=== PATIENT | male | born 1940 | race Caucasian/White ===

== ENCOUNTER 2025-01-16 12:43 | Emergency (ER) | payer OTHER, SELFPAY ==
[2025-01-16 12:45] VITALS: BP 141/65
--- NOTE | 2025-01-16 13:50 | ED.GENMED ---
History of Present Illness
General
Chief Complaint: Skin Surface Trauma
Source: patient
Exam Limitations: none
Time Seen by Provider: 01/16/25 13:39
Nursing documentation reviewed up to this point in time: agreed with
History of Present Illness
History of Present Illness:
Patient presents to ED for evaluation secondary to right index finger injury, which occurred yesterday afternoon, when it was accidentally cut with a saw at home. Denies any other injury. Tetanus vaccination up-to-date.
Past History
Past History
ED Past Medical History: Arrthythmia (atrial fibrillation), HTN, Hypercholesterolemia, [place], Other (Gout) and Other (parotid gland lesion found to be dental abscess requiring root canal December 2020)
ED Past Surgical History: Cardiac (pacemaker, cardiac stents), Orthopedic (right knee replacement) and Other (bilateral carotid endarterectomies, umbilical herniorrhaphy)
Patient has exhibited threatening behavior?: No
PSI?: No
Social History
Tobacco: Former smoker
Alcohol: None
Drug: None
Personal: Other (Seperated and has girlfriend)
Living: with family
Employment: Retired
Family History
Family History: Other (reviewed and noncontributory)
Review of Systems
Review of Systems
Allergies reviewed?: Yes
All Other Systems: ROS reviewed and negative except as documented in HPI and ROS
Constitutional: Reports no symptoms
Musculoskeletal: Reports no symptoms
Skin: Reports other (Finger laceration)
Neurological: Reports no symptoms
Phy Exam
Physical Exam
Physical Exam:
Physical Exam
General: mild distress, not acutely ill. afebrile
Head: nc/at. eomi
Neck: supple. normal range of motion
Neuro: alert and oriented x 3. no focal neurological deficits
Skin: right 2nd phalanx: laceration through distal 1/8 nail noted, involving soft tissue, along volar surface, without active bleeding.
Psychiatric: well kept. interactive and cooperative
Extremities: no edema.
Course
Orders/Labs/Results
Orders:
Orders
01/16/25 13:39
CR Finger(s)/thumb Min 2 Vw Rt Urgent
Comment:
Reason For Exam: trauma
Indicate Which Finger:: Index Finger
01/16/25 13:58
Acetaminophen [Tylenol] 650 mg PO NOW STA
Vital Signs
Initial and Last Documented VS:
Initial Vital Signs
Temp Pulse Resp BP Pulse Ox
98.4 F 62 18 141/65 97
01/16/25 12:45 01/16/25 12:45 01/16/25 12:45 01/16/25 12:45 01/16/25 12:45
Last Documented Vital Signs
Temp Pulse Resp BP Pulse Ox
98.4 F 64 16 141/65 97
01/16/25 12:45 01/16/25 15:30 01/16/25 15:30 01/16/25 12:45 01/16/25 15:30
MDM/Problems Addressed
MDM/Problems Addressed:
X-ray report reviewed and discussed with the patient.
After local digital block, affected finger soaked in diluted betadine solution for 20 min. Afterwards, finger rinsed thoroughly and bulky dressing with surgicel applied. Pt will be referred to hand surgeon for re-evaluation, as outpatient.
Pt has had therapeutic INR recently and already scheduled for repeat INR in upcoming days. No active bleeding, thus will defer blood work at this time
*Pulse Oximetry
SaO2: 97
Oxygen Mode of Delivery: Room air
Patient hypoxic: no
*Critical Care Note
Total Time (30-74mins, 75-104mins- exclusive of procedures): Not Applicable
ED Attending Note
-
Portions of this chart may have been created with voice recognition software.� Occasional wrong word or��sound alike� substitutions may have occurred due to the inherent limitations of voice recognition software.
Discharge Plan
Departure
Patient Disposition: Home (Routine Discharge)
Date of Disposition: 01/16/25
Time of Disposition: 15:13
Patient with high blood pressure during this ER visit?: Yes
Condition: Fair
Discharge Problem:
Avulsion of finger
Instructions: Common Finger Injuries ED
Prescriptions:
No Action
sotalol 80 MG tablet
80 mg PO HS
amlodipine 5 MG tablet
5 mg PO DAILY
allopurinol 100 MG tablet
100 mg PO DAILY
ramipril 5 MG capsule
5 mg PO DAILY
Folbic 1 EACH tablet
1 tab PO DAILY
cyclobenzaprine 10 mg tablet
10 mg PO HS Qty: 7 0RF
warfarin [Jantoven] 2.5 MG tablet
0 mg PO DAILY
Patient Comments:
patient says he takes this in morning and one everyday he a little confused waiting donor services specialist back from
Rx Instructions:
hold on 01/07.
Check INR on 01/08
coenzyme Q10 [CoQ-10] 100 mg Capsule
100 mg PO DAILY
Referrals:
Edwin Pan MD [Active, Orthopedics]
UNKNOWN - PT DOES,NOT KNOW [Family Provider]
Activity Restrictions/Additional Instructions:
As discussed, please follow-up with your primary care physician and/or referred hand surgeon for reevaluation.
Interventions
Interventions:
*Risk Screen - Suicide Last Done: 01/16/25 12:45
*General Assessment Last Done: 01/16/25 15:30
*Neglect/Abuse Screening Last Done: 01/16/25 15:30
*ED- Fall Risk Assessment Last Done: 01/16/25 15:30
*ED COVID-19 Vaccine History Last Done: 01/16/25 15:30
*Nursing Disposition Last Done: 01/16/25 15:30
ED-Skin Assessment Last Done: 01/16/25 13:30
Discharge Date and Time
Discharge Date/Time: 01/16/25 15:30
Print Language: CITIZEN OF [place]
== END 2025-01-16 15:30 | disposition home or self-care (01) ==
LOC: EMR 12:43
PROVIDERS: EMERGENCY PHYSICIAN Emergency Medicine
DX: S61.310A Laceration without foreign body of right index finger with damage to nail, initial encounter (principal); W27.0XXA Contact with workbench tool, initial encounter; I48.91 Unspecified atrial fibrillation; I10 Essential (primary) hypertension; E78.00 Pure hypercholesterolemia, unspecified; M10.9 Gout, unspecified; Z95.0 Presence of cardiac pacemaker; Z95.5 Presence of coronary angioplasty implant and graft; Z87.891 Personal history of nicotine dependence; Z96.651 Presence of right artificial knee joint
CPT/HCPCS: 99283; 73140

== ENCOUNTER → 2025-01-24 21:15 | Emergency (ER) | payer OTHER, SELFPAY ==
[2025-01-24 21:25] VITALS: BP 108/74
[2025-01-24 21:42] LABS: Hematocrit 40.2 % (39.0-52.0); Hemoglobin 13.5 g/dL (13.0-18.0); Mean Corp Hgb Conc. 33.6 g/dL (33.0-37.0); Mean Corpuscular Volume 86.5 fL (80.0-94.0); Nucleated Red Blood Cells % 0 % (-); Platelet Count 229 10^3/uL (130-400); Red Cell Dist. Width 15.7 % (11.5-14.5)
[2025-01-24 22:01] LABS: ALT (SGPT) 37 U/L (0-50); AST (SGOT) 32 U/L (17-59); Albumin 4.1 g/dl (3.5-5.0); Alkaline Phosphatase 87 U/L (38-126); Blood Urea Nitrogen 22 mg/dl (9-20); Calcium 8.4 mg/dl (8.4-10.2); Carbon Dioxide 28 mmol/L (22-30); Chloride 103 mmol/L (98-107); Glucose 127 mg/dl (70-99); Potassium 3.9 mmol/L (3.5-5.1); Sodium 137 mmol/L (135-145); Total Protein 6.6 g/dl (6.3-8.2); eGFR 58.89
== END ==
LOC: EMR 21:15
PROVIDERS: Emergency Medicine
DX: S61.219A Laceration without foreign body of unspecified finger without damage to nail, initial encounter (principal); X58.XXXA Exposure to other specified factors, initial encounter
CPT/HCPCS: 80053; 85025

== ENCOUNTER 2025-01-25 10:33 | Emergency (ER) | payer OTHER, SELFPAY ==
[2025-01-25 10:39] VITALS: BP 119/68
[2025-01-25 11:22] VITALS: BMI 23.5
--- NOTE | 2025-01-25 11:23 | ED.SKININJ ---
HPI-Injury
General
Chief Complaint: Skin Surface Trauma
Source: patient
Exam Limitations: none
Time Seen by Provider: 01/25/25 11:17
History of Present Illness-Injury
Initial Injury comments:
84-year-old male presents for wound check of right index finger wound. He was here over a week ago avulsed and the tip of his index finger off of a circular saw. He did not follow-up with hand specialist but his 'lady friend' states that she
thought it was infected. He denies fevers or drainage. He notes some soreness to the area. No other at this time
Past History
Past History
ED Past Medical History: Arrthythmia (atrial fibrillation), HTN, Hypercholesterolemia, [place], Other (Gout) and Other (parotid gland lesion found to be dental abscess requiring root canal December 2020)
ED Past Surgical History: Cardiac (pacemaker, cardiac stents), Orthopedic (right knee replacement) and Other (bilateral carotid endarterectomies, umbilical herniorrhaphy)
Patient has exhibited threatening behavior?: No
PSI?: No
Social History
Tobacco: Former smoker
Alcohol: None
Drug: None
Personal: Other (Seperated and has girlfriend)
Living: with family
Employment: Retired
Family History
Family History: Other (reviewed and noncontributory)
Phy Exam
Physical Exam
Physical Exam:
General: Well-appearing male no acute respiratory distress
Skin: Well-appearing right index finger avulsion is healing with epithelialization tissue noted. No surrounding erythema or drainage. There is no significant swelling
Course
Vital Signs
Initial and Last Documented VS:
Initial Vital Signs
Temp Pulse Resp BP Pulse Ox
98.0 F 61 16 119/68 98
01/25/25 10:39 01/25/25 10:39 01/25/25 10:39 01/25/25 10:39 01/25/25 10:39
Last Documented Vital Signs
Temp Pulse Resp BP Pulse Ox
98.0 F 61 16 119/68 98
01/25/25 10:39 01/25/25 10:39 01/25/25 10:39 01/25/25 10:39 01/25/25 10:39
MDM/Problems Addressed
Differential Diagnosis Includes:
Patient here for wound check wound is still open but trying to heal. There is no obvious sign of infection however given the prolonged course of healing and the open wound we will start her on Keflex
*Pulse Oximetry
SaO2: 98
Oxygen Mode of Delivery: Room air
Patient hypoxic: no
*Critical Care Note
Total Time (30-74mins, 75-104mins- exclusive of procedures): Not Applicable
ED Attending Note
-
Portions of this chart may have been created with voice recognition software.� Occasional wrong word or��sound alike� substitutions may have occurred due to the inherent limitations of voice recognition software.
Discharge Plan
Departure
Patient Disposition: Home (Routine Discharge)
Date of Disposition: 01/25/25
Time of Disposition: 11:25
Patient with high blood pressure during this ER visit?: No
Discharge Problem:
Visit for wound care
Instructions: Wound Care (DC)
Prescriptions:
New
cephalexin 500 mg capsule
500 mg PO Q8H 7 Days Qty: 21 0RF
No Action
sotalol 80 MG tablet
80 mg PO HS
amlodipine 5 MG tablet
5 mg PO DAILY
allopurinol 100 MG tablet
100 mg PO DAILY
ramipril 5 MG capsule
5 mg PO DAILY
Folbic 1 EACH tablet
1 tab PO DAILY
cyclobenzaprine 10 mg tablet
10 mg PO HS Qty: 7 0RF
warfarin [Jantoven] 2.5 MG tablet
0 mg PO DAILY
Patient Comments:
patient says he takes this in morning and one everyday he a little confused waiting armor reconnaissance specialist back from
Rx Instructions:
hold on 01/07.
Check INR on 01/08
coenzyme Q10 [CoQ-10] 100 mg Capsule
100 mg PO DAILY
Referrals:
Edwin Pan MD [Active, Orthopedics]
Activity Restrictions/Additional Instructions:
The patient keep clean. Take antibiotic as directed. Return if worse otherwise follow-up with hand surgeon
Interventions
Interventions:
*Risk Screen - Suicide Last Done: 01/25/25 10:39
*General Assessment Last Done: 01/25/25 11:22
*Neglect/Abuse Screening Last Done: 01/25/25 10:39
*ED- Fall Risk Assessment Last Done: 01/25/25 11:22
*ED COVID-19 Vaccine History Last Done: 01/25/25 11:22
ED-Skin Assessment Last Done: 01/25/25 11:22
Discharge Date and Time
Print Language: [place]
== END 2025-01-25 11:34 | disposition home or self-care (01) ==
LOC: EMR 10:33
PROVIDERS: EMERGENCY PHYSICIAN Emergency Medicine; FAMILY PHYSICIAN Family Medicine
DX: Z48.00 Encounter for change or removal of nonsurgical wound dressing (principal); I48.91 Unspecified atrial fibrillation; I10 Essential (primary) hypertension; E78.00 Pure hypercholesterolemia, unspecified; I25.2 Old myocardial infarction; M10.9 Gout, unspecified; Z95.0 Presence of cardiac pacemaker; Z95.5 Presence of coronary angioplasty implant and graft; Z87.891 Personal history of nicotine dependence; Z96.651 Presence of right artificial knee joint
CPT/HCPCS: 99281

== ENCOUNTER 2025-03-10 05:50 | Emergency (ER) | payer OTHER, SELFPAY ==
[2025-03-10 06:02] VITALS: BP 157/76
--- NOTE | 2025-03-10 06:50 | ED.GENMED ---
History of Present Illness
<Jolly Spence MD, Resident - Last Filed: 03/10/25 07:38>
General
Chief Complaint: Skin Problem
Source: patient
Time Seen by Provider: 03/10/25 06:10
History of Present Illness
History of Present Illness:
85-year-old male with past medical history of atrial fibrillation on Coumadin, gout, CAD status post stents presents to the ER for itchy rash. It started about 1 year ago on and off however in the last 6 months its become daily. It is localized to
his bilateral chest and shoulders. Last night, the itching got so severe he came into the ER for evaluation. He has been prescribed a topical cream which helps occasionally but has not eradicated the rash. He does not recall the name. He has
also tried [id number] antihistamines but is not sure which ones. He denies any fevers, chills, large blisters, new detergent or soap he is aware of. He has no known allergies. He was referred to a lead game designer however he has not gone. He
went to an urgent care for this previously and they provided a prednisone taper which helped.
Past History
<Jolly Spence MD, Resident - Last Filed: 03/10/25 07:38>
Past History
ED Past Medical History: Arrthythmia (atrial fibrillation), HTN, Hypercholesterolemia, [place], Other (Gout) and Other (parotid gland lesion found to be dental abscess requiring root canal December 2020)
ED Past Surgical History: Cardiac (pacemaker, cardiac stents), Orthopedic (right knee replacement) and Other (bilateral carotid endarterectomies, umbilical herniorrhaphy)
Patient has exhibited threatening behavior?: No
PSI?: No
Social History
Tobacco: Former smoker
Alcohol: None
Drug: None
Personal: Other (Seperated and has girlfriend)
Living: with family
Employment: Retired
Family History
Family History: Other (reviewed and noncontributory)
Review of Systems
<Jolly Spence MD, Resident - Last Filed: 03/10/25 07:38>
Review of Systems
Allergies reviewed?: Yes
All Other Systems: ROS reviewed and negative except as documented in HPI and ROS
Phy Exam
<Jolly Spence MD, Resident - Last Filed: 03/10/25 07:38>
General Physical Exam
General Presentation: well appearing
General age: appears stated age
General Skin: warm and dry
General Habitus: normal
General Mental: alert
General Hydration: appears well hydrated
Cardiovascular Exam
Cardiovascular Exam: irregularly irregular
Heart Sounds: normal
Pulmonary Exam
Pulmonary Exam: lungs clear and no respiratory distress
Skin Exam
Skin Exam: normal color, warm/dry and other (<1mm erythematous papular rash scattered on bilateral chest hall. No vesicles or blistering. )
Course
<Jolly Spence MD, Resident - Last Filed: 03/10/25 07:38>
Vital Signs
Initial and Last Documented VS:
Initial Vital Signs
Temp Pulse Resp BP Pulse Ox
97.9 F 63 20 157/76 97
03/10/25 06:02 03/10/25 06:02 03/10/25 06:02 03/10/25 06:02 03/10/25 06:02
Last Documented Vital Signs
Temp Pulse Resp BP Pulse Ox
97.9 F 63 20 157/76 97
03/10/25 06:02 03/10/25 06:02 03/10/25 06:02 03/10/25 06:02 03/10/25 06:52
<Facundo Nunez, DO - Last Filed: 03/10/25 06:55>
Vital Signs
Initial and Last Documented VS:
Initial Vital Signs
Temp Pulse Resp BP Pulse Ox
97.9 F 63 20 157/76 97
03/10/25 06:02 03/10/25 06:02 03/10/25 06:02 03/10/25 06:02 03/10/25 06:02
Last Documented Vital Signs
Temp Pulse Resp BP Pulse Ox
97.9 F 63 20 157/76 97
03/10/25 06:02 03/10/25 06:02 03/10/25 06:02 03/10/25 06:02 03/10/25 06:52
<Jolly Spence MD, Resident - Last Filed: 03/10/25 07:38>
MDM/Problems Addressed
Differential Diagnosis Includes:
Contact dermatitis, bedbugs, scabies, eczema, viral infection, autoimmune rash, drug allergy
MDM/Problems Addressed:
As rash started a year ago, will provide referral to dermatology for further evaluation. No evidence of cellulitis. Will prescribe prednisone taper over the next 12 days as oral steroids have helped him in the past. Reinforced necessity of seeing a
lead game designer for further evaluation.
Chronic conditions affecting care: HTN, CAD and Arrhythmia
<Jolly Spence MD, Resident - Last Filed: 03/10/25 07:38>
*Pulse Oximetry
SaO2: 97
Oxygen Mode of Delivery: Room air
Patient hypoxic: no
*Critical Care Note
Total Time (30-74mins, 75-104mins- exclusive of procedures): Not Applicable
Data Reviewed
Review of Other/Old Records Reveals: Labs (Hg 13.5 on 01/24/25) and Radiology Studies (Head CT 01/10/22 no acute abnormalities )
Source: patient and records
ED Attending Note
<Jolly Spence MD, Resident - Last Filed: 03/10/25 07:38>
-
Portions of this chart may have been created with voice recognition software.� Occasional wrong word or��sound alike� substitutions may have occurred due to the inherent limitations of voice recognition software.
<Facundo Mack Enrique, DO - Last Filed: 03/10/25 06:55>
ED Attending Note
Patient seen and examined by attending physician: Yes
I performed the substantive portion of visit, reviewed & personally made and approve the management plan that is documented in note by myself or DONALDO.: Yes
ED Attending Note:
I evaluated the patient at bedside. The patient has some scattered papules and macules noted to the anterior chest wall and bilateral proximal upper extremities. There is no evidence of associated cellulitis. There is no petechiae. He describes
the symptoms as rather debilitating itchiness despite being on 'a cream'. He is not certain what cream this is presumably a steroid topically. Will try oral steroids and refer to dermatology. He states that his symptoms have spontaneously
improved before evaluation this morning. However overall, there has been a progressive worsening over this past year.
Discharge Plan
Departure
Patient Disposition: Home (Routine Discharge)
Date of Disposition: 03/10/25
Time of Disposition: 06:44
Patient with high blood pressure during this ER visit?: Yes
Discharge Problem:
Rash
Instructions: Skin Rash (DC)
Prescriptions:
New
prednisone 10 mg Tablet
See Rx Instructions .ROUTE .COMPLEX Qty: 30 0RF
Rx Instructions:
Take By Mouth:
40 mg daily x3 days, 30 mg daily x3 days,
20 mg daily x3 days, 10 mg daily x3 days.
No Action
sotalol 80 MG tablet
80 mg PO HS
amlodipine 5 MG tablet
5 mg PO DAILY
allopurinol 100 MG tablet
100 mg PO DAILY
ramipril 5 MG capsule
5 mg PO DAILY
Folbic 1 EACH tablet
1 tab PO DAILY
cyclobenzaprine 10 mg tablet
10 mg PO HS Qty: 7 0RF
warfarin [Jantoven] 2.5 MG tablet
0 mg PO DAILY
Patient Comments:
patient says he takes this in morning and one everyday he a little confused waiting fabrication inspector back from
Rx Instructions:
hold on 01/07.
Check INR on 01/08
coenzyme Q10 [CoQ-10] 100 mg Capsule
100 mg PO DAILY
cephalexin 500 mg capsule
500 mg PO Q8H 7 Days Qty: 21 0RF
Referrals:
Marie Macias, DO [Active, Dermatology]
Activity Restrictions/Additional Instructions:
Please follow up with dermatology for evaluation of rash. Please bring the cream you have been using when you go to see the lead game designer. If itchiness is severe, you can try over the counter Benadryl, however be aware it can cause side effects like
confusion, drowsiness, urinary retention, constipation and dry mouth/eyes. Please be aware the steroid taper can increase restlessness and blood sugar levels.
Interventions
Interventions:
*Risk Screen - Suicide Last Done: 03/10/25 06:02
*General Assessment Last Done: 03/10/25 06:02
*Neglect/Abuse Screening Last Done: 03/10/25 06:19
*ED- Fall Risk Assessment Last Done: 03/10/25 06:02
*ED COVID-19 Vaccine History Last Done: 03/10/25 06:02
*ED Influenza Vaccine History Last Done: 03/10/25 06:02
*Nursing Disposition Last Done: 03/10/25 06:51
ED-Skin Assessment Last Done: 03/10/25 06:19
Discharge Date and Time
Discharge Date/Time: 03/10/25 06:52
Print Language: [place]
== END 2025-03-10 06:52 | disposition home or self-care (01) ==
LOC: EMR 05:50
PROVIDERS: EMERGENCY PHYSICIAN Emergency Medicine; FAMILY PHYSICIAN Family Medicine
DX: R21 Rash and other nonspecific skin eruption (principal); I48.91 Unspecified atrial fibrillation; I25.10 Atherosclerotic heart disease of native coronary artery without angina pectoris; I10 Essential (primary) hypertension; E78.00 Pure hypercholesterolemia, unspecified; I25.2 Old myocardial infarction; M10.9 Gout, unspecified; Z79.01 Long term (current) use of anticoagulants; Z87.891 Personal history of nicotine dependence; Z95.0 Presence of cardiac pacemaker; Z95.5 Presence of coronary angioplasty implant and graft; Z96.651 Presence of right artificial knee joint
CPT/HCPCS: 99282